=== PATIENT | female | born 1955 | race Caucasian/White ===

== ENCOUNTER 2022-06-23 11:57 | Outpatient (CLI) | payer MEDICARE, SELFPAY ==
--- NOTE | 2022-06-23 16:41 | WPDSIXMINUTE ---
Six Minute Walk Procedure Procedure Performed Pulmonary Stress Test (6 min walk) Six Minute Walk Six Minute Walk: This is a 6 minute walk test. The test was performed and interpreted in accordance with the 2014 ERS/ATS task force guidelines. Of note the patient wore 4 L NC pulsed dose oxygen with her personal O2 concentrator. Patient used a wheeled walker for stability. Findings: The patient's resting 4L NC pulse dose oxygen saturation measured by pulse oximetry was 96% and heart rate was 106 bpm. Patient ambulated for 213 meters and oxygen saturation remained 95 to 96%. Heart rate at the end of the study was 115 bpm. There are no prior studies for comparison.
== END 2022-06-23 11:58 | disposition home or self-care (01) ==
LOC: ANHPFT 12:02
PROVIDERS: Visit Provider Internal Medicine Pulmonary Disease
DX: J98.4 Other disorders of lung (principal)
CPT/HCPCS: 94618

== ENCOUNTER 2022-10-18 13:30 | Outpatient (RCR) | payer MEDICARE, SELFPAY ==
[2022-06-24 10:51] VITALS: PULSE 98
== END 2022-10-18 23:59 | disposition home or self-care (01) ==
LOC: ANHCPREHAB 13:30
PROVIDERS: Visit Provider Internal Medicine Pulmonary Disease
DX: T86.810 Lung transplant rejection (principal)
CPT/HCPCS: 94625; G0239

== ENCOUNTER 2022-10-28 13:30 | Outpatient (RCR) | payer MEDICARE, SELFPAY ==
[2022-10-23 00:02] VITALS: PULSE 98
== END 2022-10-28 15:40 | disposition home or self-care (01) ==
LOC: ANHCPREHAB 13:30
PROVIDERS: Visit Provider Internal Medicine Pulmonary Disease
DX: T86.810 Lung transplant rejection (principal)
CPT/HCPCS: G0239

== ENCOUNTER 2022-11-04 12:15 | Outpatient (CLI) | payer MEDICARE, SELFPAY ==
--- NOTE | 2022-11-04 13:49 | WPDSIXMINUTE ---
Six Minute Walk Procedure Procedure Performed Pulmonary Stress Test (6 min walk) Six Minute Walk Six Minute Walk: This 6 minute walk test was carried out with the patient breathing supplemental oxygen 2 liters/minute. The pre walk oxyhemoglobin saturation at rest was 99%. The patient walked approximately 183 m with no stops during testing. During the walk the oxyhemoglobin saturation remained in the range of 88% to 99%. The perceived dyspnea on the Darryn scale was 0 at baseline and increased to 3 at the end of testing. Impression: No evidence of clinically significant oxyhemoglobin desaturation on this testing.
== END 2022-11-04 12:16 | disposition home or self-care (01) ==
LOC: ANHPFT 12:16
PROVIDERS: Visit Provider Internal Medicine Pulmonary Disease
DX: Z48.24 Encounter for aftercare following lung transplant (principal)
CPT/HCPCS: 94618

== ENCOUNTER 2024-07-26 13:25 | Outpatient (RCR) | payer MEDICARE, SELFPAY ==
--- NOTE | 2024-07-26 14:56 | WPDSIXMINUTE ---
Six Minute Walk Procedure Procedure Performed Pulmonary Stress Test (6 min walk) Six Minute Walk Six Minute Walk: This is a 6 minute walk test. The test was performed and interpreted in accordance with the 2014 ERS/ATS task force guidelines. Of note, the patient used a personal wheeled walker for stability and used her home concentration of oxygen at 3 L NC. At 30 seconds into the test the patient developed weakness and heaviness in the legs and sat to rest and then restarted to finish the 6 minute walk. Findings: The patient's resting 3 L nasal cannula oxygen saturation measured by pulse oximetry was 100% and heart rate was 72 bpm. Patient ambulated for 107 meters and oxygen saturation remained 99%. Heart rate at the end of the study was 78 bpm. The patient developed weakness and heaviness in the legs requiring a 30 second rest during this study. On her home concentration of 3 L nasal cannula she had no hypoxemia at rest or with ambulation. Compared to the most recent 6 minute walk on 11/04/2022 in which the patient was using 2 L nasal cannula oxygen her distance walks has decreased from 183 m to 107 m and her thierry saturation on 2 L was 88% and currently on 3 L her thierry saturation is 99%.
== END 2024-07-26 23:59 | disposition home or self-care (01) ==
LOC: ANHCPREHAB 13:25
DX: Z94.2 Lung transplant status (principal)
CPT/HCPCS: 94618; 94625

== ENCOUNTER 2024-11-15 09:30 | Outpatient (RCR) | payer MEDICARE, SELFPAY ==
[2024-07-26 15:18] VITALS: BP 150/70; PULSE 67; RESP 16; O2SAT 99
[2024-07-26 15:42] VITALS: PULSE 67
== END 2024-11-15 23:59 | disposition home or self-care (01) ==
LOC: ANHCPREHAB 09:30
DX: Z94.2 Lung transplant status (principal)
CPT/HCPCS: 93798; G0239

== ENCOUNTER 2025-01-02 12:43 | Outpatient (CLI) | payer MEDICARE, SELFPAY ==
--- OUTSIDE RECORDS SUMMARY | 2025-01-02 13:55 | XMS_ITS | Clinical Summary ---
Author Organization [facility] on Address [address] [place] [address] Phone Care Team Providers Care [employer] Gauger Name Role Phone Unavailable Primary Care Provider Unavailabl e Allergies Active Allergy Reactions Criticality Noted Date Comments Aspirin Swelling Low 08/16/2020 Penicillins Hives,Itching High 08/16/2020 Sulfamethoxazole-Trimethoprim Nausea and Vomiting Low 08/16/2020 Medications biotin 1,000 mcg Tablet, Chewable Take by mouth. 08/16/2020 Active cholecalciferol , vitamin D3, 1,000 unit Take 1,000 Units by mouth. 08/16/2020 Active alendronate (FOSAMAX) 70 mg tablet Take 70 mg by mouth every 7 days. empty stomach before other meds,with 8oz of water, stay upright 30 min 08/16/2020 Active azaTHIOprine (IMURAN) 50 mg tablet Take 50 mg by mouth daily. 08/16/2020 Active predniSONE (DELTASONE) 5 mg tablet Take 7.5 mg by mouth daily. 08/16/2020 Active valganciclovir HCl (VALGANCICLOVIR ORAL) Take 450 mg by mouth daily. 08/16/2020 Active amLODIPine (NORVASC) 2.5 mg tablet Take 2.5 mg by mouth daily. 08/16/2020 Active calcium phosphate trib/vit D3 (CALCIUM PHOSPHATE-VITAM IN D3 ORAL) Take by mouth. 08/16/2020 Active tacrolimus (PROGRAF) 0.5 mg capsule Take 1.5 mg by mouth 2 times daily. 08/16/2020 Active SITagliptin phosphate (JANUVIA) 50 mg Tablet Take 50 mg by mouth daily with breakfast. 08/16/2020 Active atovaquone (MEPRON) 750 mg/5 mL suspension Take 1,500 mg by mouth daily. 08/16/2020 Active acyclovir (ZOVIRAX) 200 mg capsule Take 200 mg by mouth 2 times daily. 08/16/2020 Active pantoprazole (PROTONIX) 40 mg Tablet, Delayed Release (E.C.) Take 40 mg by mouth daily before breakfast. 08/16/2020 Active psyllium husk (METAMUCIL ORAL) Take by mouth daily. 08/16/2020 Active D-MANNOSE ORAL Take 1,000 mg by mouth 2 times daily. 08/16/2020 Active Social History Tobacco Use Types Packs/Day Years Used Date Smoking Tobacco: Former Smokeless Tobacco: Never Alcohol Use Standard Drinks/Week Comments Yes 0 (1 standard drink = 0.6 oz pur e alcohol) Comments Unknown Sex and Gender Information Value Date Recorded Sex Assigned at Not on file Legal Sex Female 11:30 PM STRUCTURAL ARCHITECT Gender Identity Not on file Sexual Orientation Not on file Last Filed Vital Signs Vital Sign Reading Time Taken Comments Blood Pressure 164/105 08/18/2020 7:45 AM CDT Pulse 89 08/18/2020 7:45 AM CDT Temperature 37 C (98.6 F) 08/16/2020 4:31 PM CDT Respiratory Rate 17 08/18/2020 7:45 AM CDT Oxygen Saturation - - Inhaled Oxygen Concentration - - Weight 71.2 kg (157 lb) 08/16/2020 4:31 PM CDT Height 157.5 cm (5' 2 ) 08/16/2020 4:31 PM CDT Body Mass Index 28.72 08/16/2020 4:31 PM CDT Plan of Treatment Health Maintenance Due Date Last Done Comments DTAP/TDAP/TD VACCINES (1 - Tdap) 1974 BREAST CANCER SCREENING 1995 COLORECTAL SCREENING 2000 Colorectal Cancer Screening 2000 FIT-DNA Q 3 years 2000 FIT/FOBT Q 1 year 2000 Flex Sig/CT Colonography Q 5 years 2000 PNEUMOCOCCAL VACCINE 50+ YEARS (1 of 1 - PCV) 11/08/19 06 ZOSTER VACCINE (1 of 2) 2005 OSTEOPOROSIS SCREENING 2020 INFLUENZA VACCINE (#1) 2024 RSV VACCINE (60+ or ) (1 - 1-dose 75+ series) 2030
--- OUTSIDE RECORDS SUMMARY | 2025-01-02 13:55 | XMS_ITS | Continuity of Care Document ---
Author Organization [facility] Address [address] [place] [address] Phone Care Team Providers [facility] Office Supervisor Name Role Phone Viktor JACKSON, Miguelangel Unavailable Unavaila ble Allergies, Adverse Reactions, Alerts Substance Reaction Status Criticality PENICILLIN Active No Information aspirin Active No Information Medications Medication Instructions Dosage Effective Dates (start - stop) Status Comments Restasis 0.05 % eye drops in a dropperette instill 1 drop in both eyes BID starting 1 week prior to surgery and continue for 2 months. (see comments) - Active use any over the counter Artificial Tears. azathioprine 50 mg tablet take 1 tablet by oral route every day 50 MG - Active acyclovir 200 mg capsule take 1 capsule by oral route every 4 hours 5 times per day 200 MG - Active biotin 10,000 mcg capsule - Active carvedilol 6.25 mg tablet take 1 tablet by oral route 2 times every day with food 6.25 MG - Active prednisone 10 mg tablet take 1 tablet by oral route every day 10 MG - Active tacrolimus 0.5 mg capsule take (0.05MG/KG) by oral route every 12 hours 0.05 MG/KG - Active Protonix 40 mg granules delayed-release packet take 1 packet by oral route every day mixed in 1 teaspoonful of applesauce or apple juice 40 MG - Active Tradjenta 5 mg tablet take 1 tablet by oral route every day 5 MG - Active Procedures Procedure Date CATARACT SURG W/IOL, 1 STAGE CATARACT SURG W/IOL, 1 STAGE OFFICE/OUTPATIENT VISIT, NEW OPHTHALMIC BIOMETRY [facility] 2 EYES Advance Directives Directive Yes / No Effective Date File Name No Information Encounters Encounter Description Practice Location Reason(s) For Visit Diagnoses Date Provider Providers Copied on Encounter [facility], [address] [place] [address], [id number], tel:[phone] [facility] No Information 9 Krishnasamy Miguelangel. [address], [address], [place], [place], [id number], [place]. tel:[phone] Referring Provider: Miguelangel hernández, [address], [place], [place], [id number]. tel:[phone] [facility], [address] [place] [address], [id number], tel:[phone] [facility] No Information 9 Krishnasamy Miguelangel. [address], [place], [id number], [place]. tel:[phone] Referring Provider: Miguelangel hernández, [address], [place], [place], [id number]. tel:[phone] OFFICE/OUTPA TIENT VISIT, [facility], [address] [place] [address], [id number], tel:[phone] [facility] CONSULT [facility] Cataracts (chief complaint) Age-related nuclear cataract, bilateralPoste rior subcapsular polar age-related cataract, bilateralPtosi s of both eyelidsPVD (posterior vitreous detachment), both eyesMyopia, bilateralBilat eral keratoconjunct ivitis sicca, not specified as Sjogren's 9 Krishnasamy Miguelangel. [address], [address], [place], [place], [id number], [place]. tel:[phone] Referring Provider: Miguelangel hernández, [address], [place], [place], [id number]. tel:[phone] Family History Family Member Type Diagnosis Age At Onset Problem (finding) No family history of Gl aucoma Problem (finding) No family hist ory of Macular degeneration Problem (finding) No family history of Bl indness Payers Payer name Insurance type Covered green party ID Authoriza feliciano(s) MAURILIO VAZQUEZ [id number] Social History Type Description Quantity Date Captured Comments Sex Female Smoking Status No Information Chief Complaint And Reason For Visit No Information Plan Of Treatment Date Type Action Status No Information History Of Present Illness Encounter Date Complaint History Of Prese nt Illness Cataracts The 63 year old female presents for evaluation of Cataracts in the right eye and left eye. It started about 6 month(s) ago. It affects both near and far vision. The symptom is constant. The condition is significant. [facility] Dr Lexx Johnston Instructions Date Instruction Additional Infor mation Impression/Plan Related to Age-r elated nuclear cataract, bilateral Impression/Plan Related to Poste rior subcapsular polar age-related cataract, bilateral Impression/Plan Related to Ptosi s of both eyelids Impression/Plan Related to PVD ( posterior vitreous detachment), both eyes Impression/Plan Related to Myopi a, bilateral Impression/Plan Related to Bilat eral keratoconjunctivitis sicca, not specified as Sjogren's Assessments Type Assessment Date No Information
--- OUTSIDE RECORDS SUMMARY | 2025-01-02 13:55 | XMS_ITS | Patient Health Record ---
Author Organization [facility] Address [address] [place] [address] Care Team Providers Care Impression Printer Name Role Phone Francisco Wells MD Primary Care Provider Unav ailable ElizabethorrowJerome Unavailable [phone] Tung Vail MD Unavailable Unavailable Allergies Allergen (clinical drug ingredient) Drug/Non Drug Allergy documented on EMR Reaction Allergy Type Onset Date Status aspirin Aspirin Unknown Drug Allergy Active Bactrim Unknown Drug Allergy Active penicillin G Penicillin G Sodium Unknown Drug Allergy Active Reason For Referral No Information Medications Medication SIG (Take, Route, Frequency, Duration) Notes Start Date End Date Status Pantoprazole Sodium 40 MG 1 tablet Orally Once a day Active azaTHIOprine 50 MG as directed Orally Active OTC/Vitamins Calcium D3, Juice Plus, Biotin, Tylenol, Metamucil, Miralax Active Tradjenta Active Carvedilol Active Acyclovir Active Tacrolimus Active predniSONE Active Hyoscyamine Sulfate Active Immunizations Vaccine Route Administration Date Status Comme nts Influenza Vaccination Unknown 06/30/2017 Administered Influenza Vaccination Unknown 07/30/2018 Administered Influenza, seasonal, injecta ble, preservative free, 3 yrs and above Unknown 11/07/2018 Refused Pneumonia Vaccination Unknown 07/30/2015 Administered Social History Tobacco Use: Social History Observation Description Date Details (start date - stop date) Former Smoker NA - NA Tobacco Use/Smoking Question Answer Notes Are you a former smoker How long has it been since you last smoked? > 10 years Problems Problem Type SNOMED Code ICD Code Onset Dates Problem Status W/U Status Risk Notes Problem 50327684 Cough (R05) Active confirmed S uspect her symptoms are less likely related to GERD, as she has been maintained on high-dose PPI. Upper GI revealed a small hiatal hernia with mild reflux. Would like to exclude transfer dysphagia. Other considerations include secondary to her pulmonary disease. Problem 239871810 GERD with esophagitis (K21.0) Active confirmed Endoscopy performed in August 2017 revealed LA grade a esophagitis. She has been maintained on Pantoprazole 40 mg twice a day without any difficulty. Problem 859638256 Bloating (R14.0) Active confirmed Differential diagnosis includes small intestinal bacterial overgrowth, irritable bowel syndrome or other. Problem 60159193 Dysphagia (R13.10) Active confirmed There has been no food impaction. Problem 94026811 Irritable bowel syndrome, unspecified type (K58.9) Active confirmed Problem 044887299 Status post lung transplantation (Z94.2) Active confirmed Plan Of Treatment Pending Test Test Name Order Date Upper gastrointestinal (UGI) series 08/31 Esophageal Barium Swallow/ XRay Swallow Function/Cookie Function 09/19/2017 Insurance Providers Payer Name Payer Address Payer Phone Subscriber Number Group Number Insured Name Patient Relationship to Insured Coverage Start Date Coverage End Date [employer] [employer] [address] [address] [place], [place] [id number] Jim Hansen Spouse - patient is the spouse of the insured Medical (General) History Medical History History ICD Code GERD with esophagitis Dysphagia Asthma COPD Sleep Apnea Pulmonary Fibrosis Hypertension Diabetes Kidney Problems IBS Surgical History Surgery Date(Month/Year) Double Lung Transplant 05/2018 EGD 09/20/2017 Colonoscopy (outside provider) 12/2012 Cholecystectomy Hysterectomy Bladder/Bowel Repair Hospitalization History Reason Date(Month/Year) Pneumonia Bowel Blockage
--- NOTE | 2025-01-02 14:30 | WPDSIXMINUTE ---
Six Minute Walk Procedure Procedure Performed Pulmonary Stress Test (6 min walk) Six Minute Walk Six Minute Walk: This 6 minute walk test was carried out with the patient breathing supplemental oxygen at 3 liters/minute. The pre-walk baseline oxyhemoglobin saturation was 100%. The patient walked 122 m with 1 stop lasting approximately 80 seconds. During the walk the oxyhemoglobin saturation remained in the range of 96% to 98%. Of note, during the walk the patient experienced leg pain and shortness of breath and this test was carried out to assess improvements in walk distance post pulmonary rehab. Impression: No evidence of oxyhemoglobin desaturation on this testing.
== END 2025-01-02 12:44 | disposition home or self-care (01) ==
DX: Z94.2 Lung transplant status (principal)
CPT/HCPCS: 94618

== ENCOUNTER 2025-01-03 09:30 | Outpatient (RCR) | payer MEDICARE, SELFPAY ==
[2024-11-24 00:04] VITALS: BP 150/70; PULSE 67; RESP 16; O2SAT 99
== END 2025-01-03 10:50 | disposition home or self-care (01) ==
LOC: ANHCPREHAB 09:30
DX: Z94.2 Lung transplant status (principal)
CPT/HCPCS: G0239